=== PATIENT | female | born 1950 | race Caucasian/White ===

== ENCOUNTER → 2019-07-22 | Outpatient (CLI) | payer OTHER ==
[~2019-07-22] MED LIST: ACET500T68 PO; ALBU2.5V8 IH; FLUT10.6 IH; LORA10CA PO; LOSA100T14 PO; OMEP20CA10 PO; SIMV40TA PO
== END | disposition home or self-care (01) ==
LOC: SURGPAT 13:08
PROVIDERS: ATTEND Orthopaedic Surgery
DX: Z01.818 Encounter for other preprocedural examination (principal); M17.0 Bilateral primary osteoarthritis of knee; M25.561 Pain in right knee
CPT/HCPCS: 36415; 87641

== ENCOUNTER → 2019-07-26 | Outpatient (CLI) | payer OTHER ==
[~2019-07-26] MED LIST changes: -ALBU2.5V8 IH; +HYDR-3164 PO; +PROVENTIL HFA6.7 GM IH; +REGADENOSON 0.4 MG/5 ML DISP.SYRIN. IV ONE; +WARF-31 PO
--- NOTE | 2019-07-26 11:10 | RAD ---
MR#: [id number] Date of Study: 07/26/2019 Ordering Physician: CIRILO TREADWELL, Referring Physician: FELICIA ALFRED Tech: ALEX Flor, ARRJazz (R) (N) APPROVED REPORT Test Type: Pharmacological Stress Nurse/Tech: Toni Fenton RN Test Indications: Pre-op clearance Cardiac History: HTN, asthma, Hyperlipidemia Medications: See Electronic Medical Record Medical History: See Electronic Medical Record Resting ECG: SR Resting Heart Rate: 60 bpm Resting Blood Pressure: 123/67mmHg Pretest Chest Pain: None Nurse/Tech Notes Lungs CTA, S1S2 Consent: The procedure was explained to the patient in lay terms. Informed consent was witnessed. Kulwinder eout was entered into [employer]. History and Stress Test performed by RT Melissa MartínezR) (N) Pharm. Details Pharmacologic stress testing was performed using 0.4mg per 5ml of regadenoson given intravenously ove r 7-10 seconds. Stress Symptoms No chest pain or symptoms. POST EXERCISE Reason for Termination: Infusion complete Max HR: 109 bpm Max Blood Pressure: 143/69mmHg Blood Pressure response to exercise: Normal blood pressure response during stress. Heart Rate response to exercise: normal response Chest Pain: No. Arrhythmia: No. ST Change: No. INTERPRETATION Stress EKG Conclusion: Baseline EKG showed sinus rhythm. No ischemic changes at peak stress. No arr hythmias. Imaging Protocol IMAGE PROTOCOL: Rest Tc-99m/stress Tc-99m 1 day Rest: Stress: Viability: Radiopharm.Tc99m DchcvosnoNb46z Sestamibi Dose10.6mCi 30.2mCi Img Date 07/26/2019 07/26/2019 Inj-Img Cqux70pyq. 60min. Rest Admin Site:IV - Right AntecubitalAdministrator: ALEX Flor, ARRJazz (R)(N) Stress Admin Site: IV - Right AntecubitalAdministrator: RT Chase Mratínez)(N) STRESS DATA End Diast. Vol.62.5mlLVEDV index BSA34.0ml End Syst. Vol.15.5mlLVESV index BSA8.5ml Myocardial Dhst180.0gEject. Yptlhnqw53.5% Stress Scores Regional WT0.00Summed WT0.50 Regional WM0.00Summed WM1.00 Study quality was good. Left Ventricular size was Normal at Rest and Stress. Lung uptake was . Left Ventricular ejection fraction is 77%. The rest and stress images show normal perfusion, normal contraction and thickening. LV Perf. Quant 17 Seg. SSS0.00 17 Seg. SRS5.00 17 Seg. SDS0.00 Stress Defect Extent (% LAD)0.00Rest Defect Extent (% LAD)0.00Rev. Defect Extent (% LAD)0.00 Stress Defect Extent (% LCX) 0.00Rest Defect Extent (% LCX)11.30Rev. Defect Extent (% LCX)0.00 Stress Defect Extent (% RCA)0.00Rest Defect Extent (% RCA)0.00Rev. Defect Extent (% RCA)0.00 Stress Defect Extent (% MISAEL)0.00Rest Defect Extent (% MISAEL)2.00Rev. Defect Extent (% MISAEL)0.00 Conclusion 1. Regadenoson cardioisotope stress test did not show any evidence of ischemia or infarct. 2. Normal left ventricular systolic function with ejection fraction calculated at 77%. 3. Low risk for cardiac events. Signed by : Cirilo Treadwell, Electronically Approved : 07/26/2019 11:10:10
== END | disposition home or self-care (01) ==
LOC: NM 08:18
PROVIDERS: ATTEND Internal Medicine Cardiovascular Disease
DX: Z01.810 Encounter for preprocedural cardiovascular examination (principal); I10 Essential (primary) hypertension; J45.909 Unspecified asthma, uncomplicated; E78.5 Hyperlipidemia, unspecified; F17.200 Nicotine dependence, unspecified, uncomplicated; Z88.5 Allergy status to narcotic agent
CPT/HCPCS: 78452; 93017; A9500; J2785

== ENCOUNTER 2019-08-06 07:01 | Inpatient (IN) | payer OTHER ==
[~2019-08-06] VITALS: Ht 165.1 cm; Wt 78.0 kg
[2019-08-06] VITALS (10 sets, daily range): BP systolic 107–162; BP diastolic 58–80
[~2019-08-06 07:01] MED LIST changes: +ACETAMINOPHEN 500 MG TABLET PO PRN; -HYDR-3164 PO; +IV RINGERS,LACTATED 1000ML 1,000 ML IV SCH; +KETOROLAC 30MG VIAL 30 MG, ROPIVacaine 0.5% PF 60 ML, EPINEPHrine 0.5 MG in IV NORMAL S... INJ ONE; +MELOXICAM 7.5 MG TABLET PO PRN; +ONDANSETRON PF 4 MG/2 ML VIAL. IV PRN; +PROCHLORPERAZINE 10 MG/2 ML VIAL. IV PRN; -REGADENOSON 0.4 MG/5 ML DISP.SYRIN. IV ONE; +TRANEXAMIC ACID 1,000 MG in IV NS 50ML -- 1ST BAG INJ ONE; -WARF-31 PO; +fentaNYL PF VIAL 100 MCG/2 ML VIAL IV PRN
[2019-08-06] MEDS ORDERED: diphenhydrAMINE 50 MG/ML VIAL IV PRN (07:30)
[2019-08-06] MEDS ORDERED: CALCIUM CARBONATE 500 MG TAB.CHEW PO PRN (07:30)
[2019-08-06] MEDS ORDERED: fentaNYL PF VIAL 100 MCG/2 ML VIAL IV PRN (07:30)
[2019-08-06] MEDS ORDERED: 0.9 % SODIUM CHLORIDE 10 ML DISP.SYRIN. IV PRN (07:30)
[2019-08-06] MEDS ORDERED: DEXTROSE 50% 25 GM / 50ML DISP.SYRIN. IV PRN (07:30)
[2019-08-06] MEDS ORDERED: MORPHINE SULFATE 2 MG/ML VIAL. IV PRN (07:30)
[2019-08-06] MEDS ORDERED: PROCHLORPERAZINE 5 MG TABLET. PO PRN (07:30)
[2019-08-06] MEDS ORDERED: fentaNYL PF VIAL 100 MCG/2 ML VIAL ONE ×3 (07:36→11:26)
[2019-08-06] MEDS ORDERED: LIDOCAINE 2% PF 5 ML VIAL. ONE (07:36)
[2019-08-06] MEDS ORDERED: ROCURONIUM 50 MG/5 ML VIAL. ONE (07:36)
[2019-08-06] MEDS ORDERED: PROPOFOL 20 ML IV ONE (07:36)
[2019-08-06] MEDS ORDERED: DEXAMETHASONE SOD PHOS 4 MG/ML VIAL ONE (07:36)
[2019-08-06] MEDS ORDERED: ONDANSETRON PF 4 MG/2 ML VIAL. ONE (07:36)
[2019-08-06] MEDS ORDERED: FAMOTIDINE 20 MG/2 ML VIAL ONE (07:36)
[2019-08-06] MEDS ORDERED: MIDAZOLAM HCL/PF 2 MG/2 ML VIAL. ONE (07:37)
[2019-08-06] MEDS ORDERED: KETAMINE HCL IN NACL, ISO-OSM 50 MG/5 ML SYRINGE ONE (07:37)
[2019-08-06] MEDS ORDERED: TRANEXAMIC ACID 1,000 MG in IV NS 50ML -- 2ND BAG INJ ONE (08:00)
--- NOTE | 2019-08-06 08:03 | HP ---
ADMIT DATE: 08/06/2019 CHIEF COMPLAINT: DJD of right knee. HISTORY OF PRESENT ILLNESS: The patient has undergone extended nonoperative treatment of right knee pain, undergone multiple series of injections and indicates that they have not been helpful, especially recently. She is having severe pain, accompanied sometimes by giving way sensation and is very limited by her pain and activities of daily living and desired activities, more pain with startup. PAST MEDICAL HISTORY: Tobacco use, esophagitis, asthma, hypertension, hyperlipidemia. PAST SURGICAL HISTORY: Right hip surgery, cataract removal, carpal tunnel release, hysterectomy and previous bilateral knee arthroscopies. FAMILY HISTORY: Colon cancer in her mother and generally in her family diabetes, stroke, asthma, pneumonia, heart disease, cancer, hiatal hernia and ulcers. SOCIAL HISTORY: She is a current every day smoker. Denies alcohol or drug use. MEDICATIONS: List including losartan, Zocor, omeprazole, Proventil, Flovent, Claritin, turmeric, Tylenol, calcium, vitamin D. ALLERGIES: CODEINE, WHICH IS A SENSITIVITY. REVIEW OF SYSTEMS: Denies any chest pain, shortness of breath, fever, chills, or other constitutional symptoms. PHYSICAL EXAMINATION: HEENT: Atraumatic, normocephalic. HEART: Regular rate and rhythm. LUNGS: Clear to auscultation bilaterally. ABDOMEN: Benign. EXTREMITIES: Examination of the right knee; she is stable, stable ligamentous examination, has a valgus deformity, varus deformity shows osteoarthritis with loss of medial joint space. Examination of the left knee is significant for patellofemoral crepitus, normal alignment and stability of bilateral hips and ankles. ASSESSMENT: Primarily right knee pain and primary osteoarthritis both knees. TREATMENT PLAN: Her right knee is far worse than the left. She is very limited in her activities of daily living and has been unresponsive to nonoperative treatment measures including injection, activity modification, medications and others. She wishes to proceed with surgical evaluation and treatment and we did cover the possibility of complications including infection, continued pain, premature wear or loosening, medical or other anesthetic complications among others. She agrees to proceed with surgical evaluation and treatment, which will occur today with [facility] admission to follow. HELEN CHAPMAN MD DR: JONNA/asim JOB#: [id number] / [id number]
[2019-08-06 08:15] LABS: PROTHROMBIN TIME PATIENT 12.5 SEC (11.7-14.0)
[2019-08-06] MEDS ORDERED: PHENYLEPHRINE in 0.9% NACL PF 1 MG/10 ML SYRINGE. IV ONE (08:50)
[2019-08-06] MEDS ORDERED: NEOSTIGMINE METHYLSULFATE 5 MG/5 ML SYRINGE. ONE (10:14)
[2019-08-06] MEDS ORDERED: GLYCOPYRROLATE 1 MG/5 ML VIAL. ONE (10:14)
[2019-08-06] MEDS ORDERED: SEVOFLURANE > 120 MINUTES. IH ONE (10:22)
--- NOTE | 2019-08-06 10:30 | PDOC4 ---
Operative Note Operative Note Date of surgery: 08/06/2019 Preoperative diagnosis: Degenerative right knee Postoperative diagnosis: Same Operative procedure: Right total knee arthroplasty Surgeon: Alberta Assist: Arielle Anesthesia: Gen. Estimated blood loss: 15 mL Complications: None Specimens: Cartilage surfaces to pathology Operative indications: Please see my history and physical and previous clinic notes for detailed operative indications and note that we had covered risks benefits postoperative course including the possibility of infection nerve or blood vessel damage continued pain premature wear or loosening medical or other anesthetic competitions among others all her questions were answered she wishes to proceed with surgical evaluation and treatment which will include joint center admission to follow today Operative text: Patient was identified procedure verified patient placed in the supine position on the operating table. After adequate amounts of general anesthesia were administered the right lower extremity was prepped and draped in standard sterile fashion with a thigh tourniquet. After timeout was performed patient procedure identified and verified the right lower extremity was exsanguinated by Esmarch bandage tourniquet inflated to 300 mmHg a midline incision was made and medial parapatellar approach carried out patella was feng rted fat pad was excised the femur was drilled for the intramedullary cutting guide which was set on a standard cut is there was no flexion contracture the femur was measured at a size 4 and set in 3 of external rotation with respect to the epicondylar axis and the chamfer cuts were made. Tibial cuts were made using the extra medullary cutting guide and PCL was preserved ligament balance was noted to be excellent with a 10 mm spacer a size 3 tibia component was drilled and broached and a cruciate retaining femoral component placed with excellent stability. Resurfacing patellar component was carried out by reaming and trimming off excess lateral bone to avoid any impingement and patella tracking was noted to be excellent. Femoral lugs were drilled tibial was drilled and broached and trial components removed thorough irrigation carried out normal saline solution bleeding points controlled by electrocautery and the following components were cemented in place with polymethylmethacrylate cement: A size 3 journey nonporous tibial baseplate a size 4 right cruciate retaining journey 2 Oxinium femoral component with a temporary 10 mm spacer and a 32 mm resurfacing round patellar component excess cement was removed and following the cement drying again thorough irrigation carried out normal saline solution and a 10 mm spacer was locked into place Hemovac drain and pain catheter were placed pain catheter mixture injected throughout the joint capsule and retinaculum was closed with #2 Ethibond suture in an interrupted fashion and #1 strata fix PDS suture. Subcutaneous closure with buried Vicryl suture subcuticular 30 strata fix Monocryl. A ty drain was placed patient was returned recovery room in stable condition having tolerated procedure well and toes were noted be warm pink following deflation of the tourniquet. [facility] assist was present for the procedure assisted in the prepping draping retraction and skin closure HELEN CHAPMAN MD Aug 06, 2019 10:30
[2019-08-06] MEDS: fentaNYL PF VIAL 100 MCG/2 ML VIAL IV PRN ×3 (10:54→11:51)
[2019-08-06] MEDS ORDERED: MORPHINE SULFATE 2 MG/ML VIAL. ONE (11:20)
--- NOTE | 2019-08-06 11:20 | RAD ---
KNEE RIGHT 2V History: Postop right knee arthroplasty. Technique: 2 views right knee. Comparison: February 06, 2019. Findings: Interval right total knee arthroplasty. Expected postoperative finding subcutaneous and intra-articular gas. Surgical drain is noted. Cortical disruption along the right medial proximal tibia metaphysis. Impression: 1. Interval right total knee arthroplasty. 2. Cortical disruption along the right medial proximal tibia, may represent nondisplaced fracture. FOR INTERNAL CODING PURPOSES Critical result: Findings discussed with patient's nurse at 08/06/2019 11:16 AM. RESULT CODE: (C) Electronically signed by: Terrence Faulkner DO (08/06/2019 11:18 AM) [facility]
--- NOTE | 2019-08-06 11:55 | NUR ---
ARRIVED TO UNIT BY BED FROM PACU. ALERT AND ORIENTED X'S 4. C/O SPASMS RIGHT LEG. REPOSITION ON PILLOW WITH ICE PACK. RIGHT KNEE DRESSING IS D/I WITH ALEJANDRA, IAC AND HEMOVAC DRAIN. WIGGLES TOES EASILY, WARM TO TOUCH AND PEDAL PULSES + BILATERALLY. TRAVIS AND SCD ON LEFT LEG AND RIAN ON RIGHT FOOT. IV'S INTACT AND INFUSING. O2 AT 2L PER N/C. ORIENTED TO ROOM AND CONTROLS. SIDE RAILS UP X'S 2 WITH CALL LIGHT IN REACH. CONT. MONITOR.
[2019-08-06] MEDS: ONDANSETRON ODT 4 MG TAB.RAPDIS. PO SCH ×2 (12:00→17:22)
[2019-08-06] MEDS: ONDANSETRON PF 4 MG/2 ML VIAL. IV SCH ×2 (12:00→17:21)
--- NOTE | 2019-08-06 12:35 | NUR ---
AMBULATED TO BATHROOM WITH STEADY GAIT WITH ASSISTED OF 2. VOIDED 500ML CLEAR YELLOW URINE. RETURN BACK TO BED. SON AT BEDSIDE. LUNCH ORDERED. CONT. MONITOR.
[2019-08-06] MEDS: HYDROcodone/APAP 5/325MG 1 TAB TABLET PO PRN ×2 (13:10→19:53)
[2019-08-06] MEDS: ceFAZolin SODIUM IV Push 1 GM VIAL. IVP SCH ×2 (13:11→19:52)
[2019-08-06] MEDS: IV NORMAL SALINE 1000ML BAG 1,000 ML IV SCH (13:11)
[2019-08-06] MEDS ORDERED: WARFARIN 3 MG TABLET. PO ONE (16:00)
[2019-08-06] MEDS: FERROUS SULFATE 325 MG TABLET. PO SCH (16:23)
[2019-08-06] MEDS: KETOROLAC 30MG VIAL 30 MG, BUPIVACAINE MPF 0.25% 20 ML, EPINEPHrine 0.5 MG in TOTAL VOL... INT ART SCH (17:09)
[2019-08-06] MEDS ORDERED: BUDESONIDE 0.5 MG/2 ML NEBU. NEB SCH (20:00)
[2019-08-06] MEDS: ZOLPIDEM 5 MG TABLET. PO PRN ×2 (21:09→22:25)
[2019-08-06] MEDS: SIMVASTATIN 40 MG TABLET. PO SCH (21:09)
--- NOTE | 2019-08-06 21:29 | NUR ---
seen hemovac tubing out in bed catheter tip intact
[2019-08-07] MEDS: ceFAZolin SODIUM IV Push 1 GM VIAL. IVP SCH (01:59)
[2019-08-07 02:29] VITALS: BP 103/62
[2019-08-07] MEDS: HYDROcodone/APAP 5/325MG 1 TAB TABLET PO PRN ×2 (02:45→09:28)
[2019-08-07 04:39] LABS: HEMATOCRIT 35.5 % (36.0-47.0); HEMOGLOBIN 11.9 g/dL (12.0-15.5)
[2019-08-07 04:50] LABS: PROTHROMBIN TIME PATIENT 14.8 SEC (11.7-14.0)
[2019-08-07] MEDS: KETOROLAC 30MG VIAL 30 MG, BUPIVACAINE MPF 0.25% 20 ML, EPINEPHrine 0.5 MG in TOTAL VOL... INT ART SCH (05:36)
[2019-08-07] MEDS: traMADol 50 MG TABLET PO SCH ×4 (05:47→18:01)
[2019-08-07] MEDS: ONDANSETRON ODT 4 MG TAB.RAPDIS. PO SCH ×2 (06:00)
[2019-08-07] MEDS: ONDANSETRON PF 4 MG/2 ML VIAL. IV SCH ×2 (06:00)
[2019-08-07] MEDS ORDERED: MAGNESIUM HYDROXIDE 2,400 MG/30 ML ORAL.SUSP. PO PRN (06:00)
[2019-08-07] MEDS ORDERED: GABAPENTIN 100 MG CAPSULE. PO SCH (06:00)
[2019-08-07 06:16] VITALS: BP 107/66
[2019-08-07] MEDS: IV NORMAL SALINE 1000ML BAG 1,000 ML IV SCH ×2 (07:21→20:27)
[2019-08-07 07:40] VITALS: BP 104/52
[2019-08-07] MEDS: SENNOSIDES/DOCUSATE 8.6/50MG TABLET. PO SCH (07:40)
[2019-08-07] MEDS: PANTOPRAZOLE 40 MG TABLET.DR. PO SCH (07:40)
[2019-08-07] MEDS: MULTIVITAMIN with MINERAL TABLET. PO SCH (07:40)
[2019-08-07] MEDS: MELOXICAM 7.5 MG TABLET PO SCH (07:41)
[2019-08-07 07:45] VITALS: BP 104/52
[2019-08-07] MEDS: FERROUS SULFATE 325 MG TABLET. PO SCH ×2 (07:45→16:47)
[2019-08-07] MEDS ORDERED: ACETAMINOPHEN 500 MG TABLET PO PRN (09:00)
[2019-08-07] MEDS ORDERED: ACETAMINOPHEN 500 MG TABLET PO SCH (09:00)
--- NOTE | 2019-08-07 10:47 | NUR ---
Pharmacy Warfarin Dosing Note S:Pharmacy consulted to assist with anticoagulation therapy started 08/06/19 with target INR: 1.6 - 2.5 O:FELIPE MERINO is a 68 year old F s/p Right TKA LABS: Last INR: 1.2 Last HGB: 11.9 Last HCT: 35.5 Last PLT: - Last dose of 6 mg given on 08/06/19 at 1623 Previous Regimen: NA Vitamin K given: N Drug Interaction Changes: Same Interacting Drug Ongoing Drug Interactions: Meloxicam A:INR of 1.2 is below desired range. Target range for this patient is: 1.6 - 2.5 P: Warfarin dose: 5 mg Today at 1600 Bridge Therapy: None Next INR due 08/08/19 Pharmacy anticoagulation service will continue to follow. SHELBY GALLAGHER [facility], 08/07/19 1046
[2019-08-07] MEDS ORDERED: ONDANSETRON ODT 4 MG TAB.RAPDIS. PO PRN (12:00)
[2019-08-07] MEDS ORDERED: ONDANSETRON PF 4 MG/2 ML VIAL. IV PRN (12:00)
[2019-08-07] MEDS: LOSARTAN POTASSIUM 50 MG TABLET. PO SCH (12:15)
--- NOTE | 2019-08-07 14:58 | PDOC ---
PROGRESS NOTES Subjective Subjective Problems overnight: Very pleased with her function so far says the right knee is less painful than before surgery left knee doesn't seem to be having as much compensatory pain in either Objective Vital Signs Vital Signs Date Time Temp Pulse Resp B/P (MAP) Pulse Ox O2 Delivery O2 Flow Rate FiO2 08/07/19 12:15 76 114/70 08/07/19 12:10 Room Air 08/07/19 07:00 2.0 08/07/19 06:16 97.9 20 97 97.9 Physical Exam Excellent range of motion patellofemoral tracking ligament balance distal neurovascular status intact Labs Laboratory Tests Test 08/06/19 07:49 08/07/19 04:20 Prothrombin Time 12.5 SEC (11.7-14.0) 14.8 SEC (11.7-14.0) Prothromb Time International Ratio 1.0 (0.8-1.1) 1.2 (0.8-1.1) Activated Partial Thromboplast Time 29 SEC (24-38) Hemoglobin 11.9 g/dL (12.0-15.5) Hematocrit 35.5 % (36.0-47.0) Mean Corpuscular Hemoglobin Concent 34 g/dL (31-37) Laboratory Tests Test 08/07/19 04:20 Hemoglobin 11.9 g/dL (12.0-15.5) Hematocrit 35.5 % (36.0-47.0) Mean Corpuscular Hemoglobin Concent 34 g/dL (31-37) Prothrombin Time 14.8 SEC (11.7-14.0) Prothromb Time International Ratio 1.2 (0.8-1.1) Imaging Postoperative x-rays on radiology report were suspicious for a little bit of medial cortical disruption however I did not notice any type of disruption during the surgery with implant placement she is having no pain in the specific area and I think that is a likely pre-existing abnormality Assessment Assessment POD# 1 right total knee arthroplasty Plan Plan of Care Continue mobilize weightbearing as tolerated Coumadin anticoagulation Plan home on discharge with either home health or outpatient physical therapy HELEN CHAPMAN MD Aug 07, 2019 14:58
[2019-08-07] MEDS ORDERED: WARFARIN 5 MG TABLET. PO ONE (16:00)
[2019-08-07] MEDS ORDERED: BISACODYL 10 MG SUPP.RECT. PR PRN (16:00)
[2019-08-07 18:02] VITALS: BP 137/71
[2019-08-07] MEDS: SIMVASTATIN 40 MG TABLET. PO SCH (20:54)
[2019-08-07] MEDS ORDERED: diphenhydrAMINE HCL 25 MG CAPSULE PO ONE (21:15)
--- NOTE | 2019-08-07 22:03 | NUR ---
Ambulated 4x around station in halls w/o difficulty and SBA. Surgical dressing D/I, ALEJANDRA in place.
[2019-08-08] MEDS: HYDROcodone/APAP 5/325MG 1 TAB TABLET PO PRN ×3 (04:27→16:35)
[2019-08-08 04:33] LABS: PROTHROMBIN TIME PATIENT 14.5 SEC (11.7-14.0)
[2019-08-08] MEDS: PANTOPRAZOLE 40 MG TABLET.DR. PO SCH (06:06)
[2019-08-08 06:27] VITALS: BP 141/83
[2019-08-08] MEDS: MULTIVITAMIN with MINERAL TABLET. PO SCH (08:02)
[2019-08-08] MEDS: FERROUS SULFATE 325 MG TABLET. PO SCH ×2 (08:03→15:39)
[2019-08-08] MEDS: MELOXICAM 7.5 MG TABLET PO SCH (08:03)
[2019-08-08] MEDS: SENNOSIDES/DOCUSATE 8.6/50MG TABLET. PO SCH (08:03)
[2019-08-08] MEDS: LOSARTAN POTASSIUM 50 MG TABLET. PO SCH (08:07)
[2019-08-08 09:05] LABS: HEMATOCRIT 35.6 % (36.0-47.0)
--- NOTE | 2019-08-08 12:21 | NUR ---
reviewed orally discharge instructions regarding restrictions of daily living, driving and bathing. verbalized understanding.
[2019-08-08] MEDS: traMADol 50 MG TABLET PO SCH ×2 (13:12)
--- NOTE | 2019-08-08 14:08 | NUR ---
Pharmacy Warfarin Dosing Note S: Pharmacy consulted to assist with anticoagulation therapy started 08/06/19 O: FELIPE MERINO is a 68 year old F with Right TKA LABS: Last INR: 1.2 Last HGB: 12 Last HCT: 35.6 Last PLT: - Last dose of 5 mg given on 08/07/19 at 1647 Vitamin K given: N Ongoing Drug Interactions: Meloxicam A:INR of 1.2 is below desired range. Target range for this patient is: 1.6 - 2.5 P: Warfarin dose: 5 mg Today at 1600 Bridge Therapy: None Next INR due tomorrow Pharmacy anticoagulation service will continue to follow. Hazel Madden Samara, 08/08/19 [id number]
[2019-08-08 15:37] VITALS: BP 144/69
[2019-08-08] MEDS ORDERED: HYDR-3164 PO (15:50)
[2019-08-08] MEDS ORDERED: WARF-31 PO (15:50)
--- NOTE | 2019-08-08 15:56 | SNU/HH DC ---
DISCHARGE WITH HOME HEALTH DISCHARGE INFORMATION: Final Diagnosis: Status post right total knee arthroplasty Condition on Discharge: Stable HOME HEALTH: Face to Face: I certify this patient is under my care and that I, or a nurse practitioner or physician's veterinary technician assistant working with me, had a face to face encounter that meets the physician face to face encounter requirements with this patient on [08/08/19]. Medical Complications: S/P Joint Replacement RN For Eval/Treatment: Yes Physical Therapy For: Evalulation/Treatment Pt Meets Homebound Status: Limited distance walking POST DISCHARGE ORDERS: Weight Bearing Status after Di: As tolerated DIET AFTER DISCHARGE: Regular Wound/Incision Care: Ice to area for comfort Other wound/incision instructi: remove battery pack on monday 08/13 unscrew close to dressing tape downwa CHECKS AFTER DISCHARGE: Comment: PT/INR to be drawn every Monday for the month of FOLLOW-UP: Follow Up With: call [phone] for a 2 week post op appt with Dr. Pinzon Warfarin Follow UP: [facility] to manage coumadin ???call [phone] fax [phone] TREATMENT/EQUIPMENT ORDERS: Adaptive Equipment Issued: Front wheeled walker CERTIFICATION STATEMENT: Certification Statement: Certification Statement: Based on the above finding, I certify that this patient is confined to the home and needs intermittent fpc care, physical therapy and/or speech therapy, or continues to need occupational therapy.~ This patient is under my care, and I have initiated the establishment of the plan of care.~ This patient will be followed by myself or a community physician who will periodically review the plan of care. Home Meds Reported Medications Acetaminophen (ACETAMINOPHEN) 500 Mg Tablet, 1000 MG PO BID for PAIN CONTROL, TAB 07/22/19 Loratadine (CLARITIN) 10 Mg Capsule, 10 MG PO DAILYBFRLUN for control allergies, CAP 07/22/19 Fluticasone Propionate (FLOVENT 44MCG HFA) 10.6 Gm Aer.w.adap, 2 PUFF IH PRN BID PRN for WHEEZING, INHALER 07/22/19 Albuterol Sulfate (PROVENTIL HFA INHALER) 6.7 Gm Hfa.aer.ad, 2 PUFF IH PRN Q4HRS PRN for FOR ASTHMA, INHALER 0 Refills 07/22/19 Omeprazole (OMEPRAZOLE) 20 Mg Capsule.dr, 20 MG PO DAILY for treat reflux, CAP 07/22/19 Simvastatin (ZOCOR) 40 Mg Tablet, 40 MG PO HS for FOR CHOLESTEROL, #30 TAB 0 Refills 07/22/19 Losartan Potassium (LOSARTAN POTASSIUM) 100 Mg Tablet, 100 MG PO DAILY for HYPERTENSION, TAB 07/22/19 HELEN PINZON MD Aug 08, 2019 15:56
[2019-08-08] MEDS ORDERED: WARFARIN 5 MG TABLET. PO ONE (16:00)
--- NOTE | 2019-08-08 17:00 | NUR ---
reviewed written discharge instructions with Jazmin. ride is here. reviewed written discharge instructions especially medications. does not want to wait for dinner. Coumadin given and instructed to start tomorrow evening. --again stated her ride is here--forgot to sign but agreed verbally that she understood instructions. dismissed by wheelchair. script given
--- NOTE | 2019-08-08 18:06 | PATHOLOGY ---
[facility] Accession Number: [id number] . 01 Material submitted: . knee - RIGHT KNEE BONE AND TISSUE. Modifiers: right . 01 Clinical history: . None provided . 02 Diagnosis: Segments of bone and soft tissue, right total knee arthroplasty: - Advanced degenerative arthritis. (JPM:[facility] 08/08/2019) QTP 08/08/2019 1529 Local . 02 Electronically signed: . Oliverio Tong MD, Pathologist NPI- [id number] . 01 Gross description: . The specimen is received in formalin, labeled "Jazmin Oliveira, right knee bone and tissue" and consists of multiple segments of bone including the tibial plateau with attached yellow lobulated tissue measuring 16.0 x 11.6 x 2.0 cm in aggregate. The meniscus is present. Eburnation is present along with periphery osteophytic lipping. Bradder sections are submitted in A1-A2 with A2 following decalcification. (SDY; 08/06/2019) SYU/SYU 08/08/2019 1529 Local . 02 Pathologist provided ICD-10: M17.11 . 02 CPT . 231304, [id number] Specimen Comment: A courtesy copy of this report has been sent to [phone], [phone] Specimen Comment: [id number] Specimen Comment: Report sent to / DR TAVARES Performed at: 01 [facility] [address], [place] [id number] MD Jasmeet Khan MD Phone: [phone] Performed at: 02 [facility] [address], [place] [id number] MD Oliverio Tong MD Phone: [phone]
--- NOTE | 2019-08-09 18:31 | DS ---
DATE OF DISCHARGE: 08/08/2019 CHIEF COMPLAINT: Right knee pain, DJD. PROCEDURE: Include a right total knee arthroplasty. DISPOSITION: Home with home health. MEDICATIONS: Include Coumadin as directed by anticoagulation clinic, Igor 5/325 one p.o. q. 4 hours p.r.n., dispense #60. Resume preoperative medications. ACTIVITY: Weightbearing as tolerated, standard total knee precautions, maintain ALEJANDRA drain. DISCHARGE INSTRUCTIONS: Report any redness, drainage, fever, chills, uncontrolled pain or other problems. Follow up with Dr. Pinzon 2 weeks. BRIEF DESCRIPTION OF HOSPITAL COURSE: The patient underwent an uncomplicated right total knee arthroplasty, was medically stable throughout and did go through physical therapy, doing extremely well. She actually said she had less pain than before and the other knee hurting her less as compensatory measure. She was able to perform her activities of daily living and transfers well with physical therapy and was discharged in stable condition. HELEN PINZON MD DR: JONNA/asim JOB#: [id number] / [id number]
== END 2019-08-08 16:50 | disposition home health service (06) | DRG 470 ==
LOC: OPSVCIP 07:01 → 4 SOUTHEST 11:57
PROVIDERS: ADMIT Orthopaedic Surgery; ATTEND Orthopaedic Surgery
PROC: 0SRC0J9 Replacement of Right Knee Joint with Synthetic Substitute, Cemented, Open Approach (ICD-10-PCS; principal; 2019-08-06 08:30)
DX: M17.11 Unilateral primary osteoarthritis, right knee (principal); F17.200 Nicotine dependence, unspecified, uncomplicated; J45.909 Unspecified asthma, uncomplicated; I10 Essential (primary) hypertension; E78.5 Hyperlipidemia, unspecified; Z83.3 Family history of diabetes mellitus; Z82.5 Family history of asthma and other chronic lower respiratory diseases; Z82.3 Family history of stroke; Z80.0 Family history of malignant neoplasm of digestive organs; Z90.710 Acquired absence of both cervix and uterus
CPT/HCPCS: 36415; 73560; 85014; 85018; 85610; 85730; 86850; 86900; 86901; 88304; 88311; A7015; C1713; J0171; J0690; J0696; J1100; J1885; J2001; J2250; J2270; J2370; J2405; J2704; J2710; J2795; J3010; J3490; J7030; J7120; Q0163; 97116; 97150; 97530; 97535; C1769; G0378

== ENCOUNTER → 2019-09-16 | Outpatient (CLI) | payer OTHER ==
[~2019-09-16] MED LIST changes: -ACETAMINOPHEN 500 MG TABLET PO PRN; +HYDR-3164 PO; -IV RINGERS,LACTATED 1000ML 1,000 ML IV SCH; -KETOROLAC 30MG VIAL 30 MG, ROPIVacaine 0.5% PF 60 ML, EPINEPHrine 0.5 MG in IV NORMAL S... INJ ONE; -MELOXICAM 7.5 MG TABLET PO PRN; +OMEP-229 PO; -OMEP20CA10 PO; -ONDANSETRON PF 4 MG/2 ML VIAL. IV PRN; -PROCHLORPERAZINE 10 MG/2 ML VIAL. IV PRN; -TRANEXAMIC ACID 1,000 MG in IV NS 50ML -- 1ST BAG INJ ONE; +WARF-31 PO; -fentaNYL PF VIAL 100 MCG/2 ML VIAL IV PRN
--- NOTE | 2019-09-16 10:22 | CARD ---
MR#: [id number] Date of Study: 09/16/2019 Ordering Physician: CIRILO TREADWELL, Referring Physician: CIRILO TREADWELL Tech: Sierra Us RDCS APPROVED REPORT EXAM: Two-dimensional and M-mode echocardiogram with Doppler and color Doppler. Other Information Quality : Good INDICATION Pre-Op 2D DIMENSIONS RVDd2.5 (2.9-3.5cm)Left Atrium(2D)3.4 (1.6-4.0cm) IVSd0.9 (0.7-1.1cm)Aortic Root(2D)3.0 (2.0-3.7cm) LVDd4.9 (3.9-5.9cm)LVOT Diameter1.9 (1.8-2.4cm) PWd0.9 (0.7-1.1cm)LVDs2.7 (2.5-4.0cm) FS (%) 30.0 %SV87.4 ml LVEF(%)60.0 (>50%) Aortic Valve AoV Peak Jamil.130.6cm/sAoV VTI25.2cm AO Peak GR.6.8mmHgLVOT Peak Jamil.111.8cm/s AO Mean GR.4mmHgAVA (VMAX)2.46cm2 VY (VTI)2.60cm2 Mitral Valve MV E Umwzrack18.0cm/sMV DECEL BMWV843fo MV A Nvgptwuf33.8cm/sE/A Ratio0.9 Tricuspid Valve TR P. Ypkoqdxb310bt/sRAP SHXKDDIA1zcTq TR Peak Gr.41gaSoGQHB02gjOd Pulmonary Vein S1 Tcqyqhvz07.2cm/sD2 Kwortelj24.0cm/s LEFT VENTRICLE The left ventricle is normal size. There is mild to moderate concentric left ventricular hypertrophy. The left ventricular systolic function is normal and the ejection fraction is within normal range. T he Ejection Fraction is 55-60%. There is normal LV segmental wall motion. Transmitral Doppler flow pa ttern is Grade I-abnormal relaxation pattern. RIGHT VENTRICLE The right ventricle is normal size. The right ventricular systolic function is normal. ATRIA The left atrium size is normal. The right atrium size is normal. The interatrial septum is intact wit h no evidence for an atrial septal defect or patent foramen ovale as noted on 2-D or Doppler imaging. AORTIC VALVE The aortic valve is mildly thickened/calcified but opens well. Doppler and Color Flow revealed no sig nificant aortic regurgitation. There is no significant aortic valvular stenosis. MITRAL VALVE The mitral valve is calcified but opens well. Mitral annular calcification is mild. There is no evide nce of mitral valve prolapse. There is no mitral valve stenosis. Doppler and Color-flow revealed trac e to mild mitral regurgitation. TRICUSPID VALVE The tricuspid valve is normal in structure and function. Doppler and Color Flow revealed trace to mil d tricuspid regurgitation. The PA pressure was estimated at 25 mmHg. There is no tricuspid valve sten osis. PULMONIC VALVE The pulmonic valve is not well visualized. Doppler and Color Flow revealed trace to mild pulmonic nichole vular regurgitation. There is no pulmonic valvular stenosis. GREAT VESSELS The aortic root is normal in size. The ascending aorta is normal in size. The IVC is normal in size a nd collapses >50% with inspiration. PERICARDIAL EFFUSION There is no evidence of significant pericardial effusion. Critical Notification Critical Value: No <Conclusion> The left ventricular systolic function is normal and the ejection fraction is within normal range. Th e Ejection Fraction is 55-60%. There is normal LV segmental wall motion. Signed by : Walter Regan, Electronically Approved : 09/16/2019 10:21:46
== END | disposition home or self-care (01) ==
LOC: ECHO 07:24
PROVIDERS: ATTEND Internal Medicine Cardiovascular Disease
DX: Z01.818 Encounter for other preprocedural examination (principal); I08.8 Other rheumatic multiple valve diseases
CPT/HCPCS: 93306

== ENCOUNTER → 2020-09-28 | Outpatient (CLI) | payer MEDICARE ==
[~2020-09-28] MED LIST changes: -OMEP-229 PO; +OMEP20CA16 PO
--- NOTE | 2020-09-28 14:28 | CARD ---
MR#: [id number] Date of Study: 09/28/2020 Ordering Physician: CIRILO TREADWELL, Referring Physician: CIRILO TREADWELL Tech: Mary Bishop [facility] APPROVED REPORT EXAM: Two-dimensional and M-mode echocardiogram with Doppler and color Doppler. Other Information Quality : Good Rhythm : NSR INDICATION Hypertension/HCVD RISK FACTORS Hypertension Hyperlipidemia 2D DIMENSIONS RVDd2.8 (2.9-3.5cm)Left Atrium(2D)3.6 (1.6-4.0cm) IVSd1.1 (0.7-1.1cm)Aortic Root(2D)3.0 (2.0-3.7cm) LVDd4.0 (3.9-5.9cm)LVOT Diameter2.1 (1.8-2.4cm) PWd1.0 (0.7-1.1cm)LVDs2.9 (2.5-4.0cm) FS (%) 27.7 %SV37.3 ml LVEF(%)54.3 (>50%) Aortic Valve AoV Peak Jamil.109.9cm/sAoV VTI27.9cm AO Peak GR.4.8mmHgLVOT Peak Jamil.110.9cm/s AO Mean GR.3mmHgAVA (VMAX)3.59cm2 Mitral Valve MV E Ffcqqtar253.9cm/sMV DECEL OABK438bs MV A Lbecqbyh73.7cm/sE/A Ratio1.0 Pulmonary Valve PV Peak Yzhvfhig78.4cm/s Tricuspid Valve TR P. Jewwdpwq692iq/sTR Peak Gr.22mmHg Pulmonary Vein S1 Ahxwxquu94.2cm/sD2 Nyuxxfcc43.7cm/s PVa [id number] LEFT VENTRICLE The left ventricle is normal size. There is normal left ventricular wall thickness. The left ventricu lar systolic function is normal and the ejection fraction is within normal range. Estimated ejection fraction 60%. There is normal LV segmental wall motion. Tissue Doppler imaging reveals mild left vent ricular diastolic dysfunction. RIGHT VENTRICLE The right ventricle is normal size. There is normal right ventricular wall thickness. The right ventr icular systolic function is normal. ATRIA The left atrium size is normal. The right atrium size is normal. The interatrial septum is intact wit h no evidence for an atrial septal defect or patent foramen ovale as noted on 2-D or Doppler imaging. AORTIC VALVE The aortic valve is normal in structure and function. Doppler and Color Flow revealed no significant aortic regurgitation. There is no significant aortic valvular stenosis. MITRAL VALVE The mitral valve is normal in structure and function. There is no mitral valve stenosis. Doppler and Color-flow revealed mild mitral regurgitation. TRICUSPID VALVE The tricuspid valve is normal in structure and function. Doppler and Color Flow revealed mild tricusp id regurgitation. Estimated PAP 25 mmHg. There is no tricuspid valve stenosis. PULMONIC VALVE Doppler and Color Flow revealed trace pulmonic valvular regurgitation. There is no pulmonic valvular stenosis. GREAT VESSELS The aortic root is normal in size. The ascending aorta is normal in size. The IVC is normal in size a nd collapses >50% with inspiration. PERICARDIAL EFFUSION There is no evidence of significant pericardial effusion. Critical Notification Critical Value: No <Conclusion> The left ventricular systolic function is normal and the ejection fraction is within normal range. E stimated ejection fraction 60%. There is normal LV segmental wall motion. Doppler and Color-flow revealed mild mitral regurgitation. Signed by : Walter Regan, Electronically Approved : 09/28/2020 14:28:16
== END ==
LOC: ECHO 08:42
PROVIDERS: ATTEND Internal Medicine Cardiovascular Disease
DX: I08.1 Rheumatic disorders of both mitral and tricuspid valves (principal); I10 Essential (primary) hypertension
CPT/HCPCS: 93306

== ENCOUNTER → 2021-04-26 | Outpatient (CLI) | payer MEDICARE ==
--- NOTE | 2021-04-26 14:46 | KCIC ---
MRI of the cervical spine without contrast 04/26/2021 CLINICAL HISTORY: Neck pain which radiates down the right shoulder. TECHNIQUE: Unenhanced T1-weighted, T2-weighted and inversion recovery sagittal and gradient echo and T2-weighted axial images of the cervical spine were obtained. FINDINGS: Minimal lateral curvature of the cervical spine is seen convex to the right. There is strai ghtening of the normal cervical lordosis. Degenerative signal changes are seen involving all of the d isks of the cervical spine. Degenerative signal changes are seen within the marrow surrounding these discs. No area of abnormal signal intensity is seen involving the cervical spinal cord. At the C2-3 disc space there is a mild generalized disc bulge. Degenerative changes are seen involvin g the uncovertebral and facet joints, right greater than left. These findings when combined do not re sult in significant central spinal canal stenosis. Mild right neural foraminal stenosis is seen. The left neural foramen is patent. At the C3-4 disc space is a mild to moderate generalized disc bulge. Degenerative changes are seen in volving the uncovertebral and facet joints.These findings when combined do not result in significant central spinal canal stenosis. Mild to moderate neural foraminal stenosis is seen. At the C4-5 disc space there is a mild generalized disc bulge. Degenerative changes are seen involvin g the uncovertebral and facet joints, right greater than left. These findings do not result in signif icant central spinal canal stenosis. Mild right neural foraminal stenosis is seen. The left neural fo ramen is patent. At the C5-6 disc space there is a moderate generalized disc bulge. Degenerative changes are seen invo lving the uncovertebral and facet joints bilaterally. These findings efface the anterior and posterio r CSF resulting in moderate central spinal canal stenosis with mild cord impingement. Moderate to sev ere bilateral neural foraminal stenosis is seen. At the C6-7 disc space there is a mild to moderate generalized disc bulge. Degenerative changes are s een involving the uncovertebral and facet joints, right greater than left. These findings when combin ed efface the anterior CSF resulting in mild central spinal canal stenosis without evidence of cord i mpingement. Moderate to severe right neural foraminal stenosis is seen. The left neural foramen is pa tent. At the C7-T1 disc space there is a minimal generalized disc bulge. Degenerative changes are seen invo lving the facet joints bilaterally. These findings do not result in significant central spinal canal or neural foraminal stenosis. IMPRESSION: Degenerative changes are seen throughout the cervical spine. These findings results in mo derate central spinal canal stenosis with mild cord impingement at C5-6 and mild central spinal canal stenosis without evidence of cord impingement at C6-7. Mild right neural foraminal stenosis is seen at C2-3 and C4-5. Mild to moderate bilateral neural foraminal stenosis is seen at C3-4. Moderate to s evere bilateral neural foraminal stenosis is seen at C5-6. Moderate to severe right neural foraminal stenosis is seen at C6-7. Electronically signed by: Oswald Arellano MD (04/26/2021 2:43 PM) [id number]
== END ==
LOC: KCIC MRI 10:39
PROVIDERS: ATTEND Family Medicine
DX: M47.23 Other spondylosis with radiculopathy, cervicothoracic region (principal); M40.292 Other kyphosis, cervical region; M48.02 Spinal stenosis, cervical region
CPT/HCPCS: 72141

== ENCOUNTER → 2021-05-31 | Outpatient (CLI) | payer MEDICARE ==
[~2021-05-31] MED LIST changes: +ACET325T9 PO; +FEXO1TAB31 PO
--- NOTE | 2021-05-31 15:49 | PDOC1 ---
INITIAL PAIN CONSULT DATE OF SERVICE: DOS: DATE: 05/31/21 TIME: 15:37 CHIEF COMPLAINT: Chief Complaint: Neck and bilateral upper extremity pain Low back and bilateral lower extremity pain HISTORY OF PRESENT ILLNESS: 70-year-old female presents with history of pain base of neck and shoulder pain radiating to the upper extremities somewhat worse on the right than the left and present bilaterally in the shoulders and upper extremities rating the posterior deltoids into the triceps also the biceps and forearm into the hands and fingers again worse on the right side patient reports occasional shooting pain on the right side which is sharp and aching but only intermittently patient reports is usually pretty rare for this to happen generally is not strict with that kind of intensity on the left side but it does travel in both the upper extremities patient also reports some low back pain with bilateral posterior gluteus lateral thigh and lower medial calf pain but is secondary to her neck and upper extremity pain. Patient did have an MRI scan of the cervical spine showing degenerative changes throughout with moderate central spinal canal stenosis with mild cord impingement C5-6 mild central spinal canal stenosis without evidence of cord impingement at C6-7 and mild right foraminal stenosis C2-3 and C4-5 with mild to moderate bilateral neuroforaminal stenosis at C3-4 patient is moderate to severe bilateral neuroforaminal stenosis at C5-6 and moderate to severe right neuroforaminal stenosis at C6-7. Patient rates her disability of 0-10 10 being worst is a 5 with family home responsibilities social activity occupation 9 with life support activities 3 with self-care and 4 with recreational activities patient is had physical therapy is recently April this year also doing stretching strength exercises has not chiropractic treatment on her low back as well none of these have decreased her pain significantly and nothing was long-lasting patient is also taking meloxicam which does not decrease the pain. She is tried pbku-xnb-qfktofm Advil as well as Tylenol with similar results and no significant decrease in pain. PAST MEDICAL HISTORY: PMH: Arthritis, hypertension, COPD, cataracts PREVIOUS SURGERIES: Past Surgical Hx: Cataract extraction, right hip replacement, right knee surgery, hysterectomy, bilateral carpal tunnel repairs CURRENT MEDICATIONS: Current Meds: Active Scripts Medications Dose Route/Sig Max Daily Dose Days Date Category Tylenol (Acetaminophen) 325 Mg Tablet 1-2 Tab PO QID 05/31/21 Reported Phoebe-D 24 Hour Tablet (Fexofenadine/Pseudoephedrine) 1 Each Tab.er.24h 1 Tab PO DAILY 30 05/31/21 Reported Mastic 5-325 Tablet (Acetaminophen/Hydrocodone Bitart) 1 Each Tablet 1 Tab PO PRN Q4HRS PRN 08/08/19 Rx Flovent 44MCG Hfa (Fluticasone Propionate) 10.6 Gm Aer.w.adap 2 Puff IH PRN BID PRN 07/22/19 Reported Proventil Hfa Inhaler (Albuterol Sulfate) 6.7 Gm Hfa.aer.ad 2 Puff IH PRN Q4HRS PRN 07/22/19 Reported Omeprazole 20 Mg Capsule.dr 20 Mg PO DAILY 07/22/19 Reported Zocor (Simvastatin) 40 Mg Tablet 40 Mg PO HS 07/22/19 Reported Losartan Potassium 100 Mg Tablet 100 Mg PO DAILY 07/22/19 Reported ALLERGIES; Allergies: Coded Allergies: codeine (Verified Adverse Reaction, Intermediate, Nausea and Vomiting, 07/22/19) FAMILY HISTORY: Family Hx: Colon cancer, brain tumor, diabetes SOCIAL HISTORY: Social Hx: Patient is under alcohol, does smoke cigarettes and smoked for about 50 years one half a pack a day on average. Patient lives at home does not have any children live in the home is single and is currently retired. REVIEW OF SYSTEMS: ROS: Positive for those items mentioned in history of present illness, all systems are reviewed, otherwise negative ,and are complete full and well-documented on patient's chart. PHYSICAL EXAM: VS: Blood pressure is 134/70 pulse 78 respirations 18 temperature is 98.1 F height 5 feet 5 inches weight is 172 pounds PE: PHYSICAL EXAMINATION: GENERAL: The patient is awake, alert, oriented, appropriate, very pleasant in demeanor HEENT: Shows normocephalic, atraumatic. Extraocular movements are intact and symmetrical. Oral cavity: Mucous membranes moist and pink. Dentition is intact. NECK: Shows anterior throat supple without palpable lymphadenopathy noted. Swallow reflex symmetrical. CHEST: Shows normal on inspection. Breath sounds are clear bilaterally, distant but no rales or rhonchi or wheezes. HEART: Shows S1, S2 clear. No murmurs auscultated. ABDOMEN: Soft, nontender, nondistended, obese. No palpable organomegaly is noted. BACK: Shows spine grossly in the midline. Normal-appearing cervical lordotic curvature. Cervical paraspinous muscles show symmetrical with inspection, on palpation some moderate tenderness diffusely throughout the upper middle lobe decrease the paraspinous muscles right equal to left without asymmetry without atrophy or hypertrophy. Patient shows good rotation motion cervical spine both laterally greater than 45 degrees some moderate tenderness only diffusely bilaterally and also with extension and forward flexion performed fully without significant increase in pain. There is slightly increased thoracic kyphosis, some minor flattening of the lumbar lordotic curvature. Lumbar paraspinous muscles show symmetrical on inspection, on palpation shows some moderate tenderness diffusely throughout the upper, middle and lower distribution of the paraspinous muscles bilaterally and also into the lower thoracic paraspinous musculature, firm and tender, but without specific trigger points, without radiation of pain. The patient has good rotational motion of the lumbar spine, both laterally as well as extension and flexion without significant difficulty. No tenderness over the spinous processes, sacrum or sacroiliac regions. EXTREMITIES: Lower extremities show deep tendon reflexes 2 in the patellar and tendo calcaneus tendons. Motor exam is 4 on a scale of 5 with right dorsiflexion, extension, quadriceps and hamstring flexion and 4/5 on the left. Peripheral pulses are 1 posterior tibial. No peripheral edema is noted bilaterally. Lower extremities are warm and dry to touch, equal in color and appearance. Upper extremity show deep tendon reflexes 2+ in the bicep tricep tendons, motor exam is 4 to scale 5 with right senior medical director strength bicep tricep flexion and 5 out of 5 on the left. Patient has good shoulder shrug intact without loss of strength on resistance as is abduction of the shoulders 90 degrees without loss of strength with resistance bilaterally. SKIN: Shows warm and dry, good turgor. No edema. No sores, rashes or bruising throughout. IMPRESSION: Impression: 70-year-old female with 10-month history pain base the neck and upper extremities and radicular fashion worse on the right than the left following a C6-7 dermatomal distribution. MRI scan cervical spine as noted Retention COPD Cigarette smoking Plan: Options were discussed with the patient including conservative medical management continued physical therapies and interventional techniques. As patient has done physical therapies is doing the exercises and has had poor results with both prescription and ltej-xdr-imbhufa anti-inflammatories patient would like to pursue interventional techniques. We discussed a cervical epidural steroid injection using description as well as anatomical models to describe the procedure. Patient will wait for preauthorization with her i nsurance provider once authorized we will have her return for a translaminar at C6-7 level cervical epidural steroid injection with fluoroscopic guidance. In the meantime patient will continue with stretching strength exercises as currently as well as oral analgesics. NANCY WARD MD May 31, 2021 15:49
== END | disposition home or self-care (01) ==
LOC: PNCL 13:11
PROVIDERS: ATTEND Anesthesiology
DX: M54.2 Cervicalgia (principal); M54.5 Low back pain; M79.602 Pain in left arm; M79.601 Pain in right arm; M79.605 Pain in left leg; M79.604 Pain in right leg; M19.90 Unspecified osteoarthritis, unspecified site; I10 Essential (primary) hypertension; E11.9 Type 2 diabetes mellitus without complications; E78.00 Pure hypercholesterolemia, unspecified; F41.9 Anxiety disorder, unspecified; F32.9 Major depressive disorder, single episode, unspecified; F17.210 Nicotine dependence, cigarettes, uncomplicated; Z90.710 Acquired absence of both cervix and uterus; Z79.899 Other long term (current) drug therapy; Z98.890 Other specified postprocedural states; Z80.0 Family history of malignant neoplasm of digestive organs; Z88.5 Allergy status to narcotic agent
CPT/HCPCS: G0463

== ENCOUNTER → 2021-06-15 | Outpatient (CLI) | payer MEDICARE ==
[~2021-06-15] MED LIST changes: +IOHEXOL 180 MG/ML 10 ML VIAL. ONE; +methylPREDNISolone ACETATE 80 MG/ML VIAL. ONE
--- NOTE | 2021-06-15 09:04 | PDOC ---
Progress Note - Pain Clinic Date of Service: DOS: DATE: 06/15/21 TIME: 09:00 Diagnosis: Dx: Cervical radiculopathy with cervical degenerative disease and cervical spinal stenosis Lumbar radiculopathy with lumbar degenerative disc disease History or Present Illness: HPI: 70-year-old female returns for follow-up status post evaluation and awaiting insurance preauthorization patient returns today reporting significant pain in the neck and base of the shoulders now also on the left side more than the right side patient reports saturation was always the right side that was painful in the shoulder and arm but now is rating the left arm just is significantly patient reports this is occurred over the past week or so worse with activity worse with reaching overhead repetitive motions lifting weights with the upper extremities or reaching over her head with her arms. Patient rates pain is a 10 on scale 10 is worst 8-10 on average for its least and is an 8 today patient reports its aching and dull shooting sharp radiating again into the left upper extremity now more so even than the right. Patient reports no new injuries or accidents. Physical Exam: VS: Blood pressure is 140/80 pulse 63 respirations 18 temperature 90.1 F height 5 feet 5 inches weight is 174 pounds PE: PHYSICAL EXAMINATION: GENERAL: The patient is awake, alert, oriented, appropriate, very pleasant in demeanor HEENT: Shows normocephalic, atraumatic. Extraocular movements are intact and symmetrical. Oral cavity: Mucous membranes moist and pink. NECK: Shows anterior throat supple without palpable lymphadenopathy noted. Swallow reflex symmetrical. CHEST: Shows normal on inspection. Breath sounds are clear bilaterally, distant but no rales or rhonchi. HEART: Shows S1, S2 clear. No murmurs auscultated. ABDOMEN: Soft, nontender, nondistended, obese. No palpable organomegaly is noted. BACK: Shows spine grossly in the midline. Normal-appearing cervical lordotic curvature. Cervical paraspinous muscles show symmetrical inspection, palpation some moderate tenderness diffusely bilaterally with out specific trigger points or atrophy hypertrophy. Patient shows good rotation motion cervical spine both laterally as well as extension and forward flexion. There is slightly increased thoracic kyphosis, some minor flattening of the lumbar lordotic curvature. EXTREMITIES: Upper extremities show deep tendon reflexes 2+ in the biceps and triceps tendons. Motor exam is 4 on a scale of 5 with right insulation technician, biceps and triceps flexion and 5/5 on the left. Peripheral pulses are 2+ radial. No peripheral edema is noted bilaterally. Upper extremities are warm and dry to touch, equal in color and appearance. SKIN: Shows warm and dry, good turgor. No edema. No sores, rashes or bruising throughout. Procedure: Procedure: Options discussed with patient. Patient chart was reviewed as her current medication regimen updated current review of systems updated today as well. We will proceed with a cervical epidural steroid injection today with fluoroscopic guidance. Risks were discussed including but not limited to: Bleeding, infecti on, possibility of epidural hematoma and subsequent neurological compromise, dural puncture, headaches, spinal cord and/or nerve damage, side effects of steroid medication, and poor results regarding pain control. Patient understands and wished to proceed. Patient will return to the clinic in approximate 2 weeks for follow-up, was counseled as return appointment, activity, and side effects to be aware of. Medication Injected: Med Injected: Procedure cervical epidural steroid injection at the C6-7 level, using local anesthetic under sterile prep and drape using C-arm fluoroscopic guidance under local anesthesia medications injected ;120 mg Depo-Medrol +5 mL normal saline and 2 mL contrast; condition at discharge is stable patient tolerated procedure well. and had no complications Condition at Discharge: Condition at Discharge: Condition at discharge is stable, patient tolerated the procedure well and had no complications. NANCY WARD MD Jun 15, 2021 09:04
--- NOTE | 2021-06-15 09:04 | PDOC4 ---
Procedure Note: ICD 10 Code: ICD 10 Code: M54.12 M 48.02 M50.30 Procedure Note: Patient was consented for cervical epidural steroid injection with fluoroscopic guidance. Risks were discussed including but not limited to: Bleeding, infection, possibility of epidural hematoma and subsequent neurological compromise, dural puncture, headaches, spinal cord and/or nerve damage, side effects of steroid medication, and poor results regarding pain control. Patient understands and wished to proceed. Procedure cervical epidural steroid injection at the C6-7 level, using local anesthetic under sterile prep and drape using C-arm fluoroscopic guidance under local anesthesia medications injected ;120 mg Depo-Medrol +5 mL normal saline and 2 mL contrast; condition at discharge is stable patient tolerated procedure well. and had no complications NANCY WARD MD Jun 15, 2021 09:04
== END | disposition home or self-care (01) ==
LOC: PNCL 08:13
PROVIDERS: ATTEND Anesthesiology
DX: M50.10 Cervical disc disorder with radiculopathy, unspecified cervical region (principal); M48.02 Spinal stenosis, cervical region; M51.16 Intervertebral disc disorders with radiculopathy, lumbar region; I10 Essential (primary) hypertension; E78.00 Pure hypercholesterolemia, unspecified; M19.90 Unspecified osteoarthritis, unspecified site; F41.9 Anxiety disorder, unspecified; F32.9 Major depressive disorder, single episode, unspecified; F17.210 Nicotine dependence, cigarettes, uncomplicated; Z90.710 Acquired absence of both cervix and uterus; Z98.890 Other specified postprocedural states; Z79.899 Other long term (current) drug therapy; Z88.5 Allergy status to narcotic agent
CPT/HCPCS: 62321; J1040; Q9965

== ENCOUNTER → 2021-06-29 | Outpatient (CLI) | payer MEDICARE ==
[~2021-06-29] MED LIST changes: -IOHEXOL 180 MG/ML 10 ML VIAL. ONE; -methylPREDNISolone ACETATE 80 MG/ML VIAL. ONE
--- NOTE | 2021-06-29 08:34 | PDOC ---
Progress Note - Pain Clinic Date of Service: DOS: DATE: 06/29/21 TIME: 08:28 Diagnosis: Dx: Cervical radiculopathy with cervical degenerative disease and cervical spinal stenosis History or Present Illness: HPI: 70-year-old female returns for follow-up status post cervical epidural steroid injection x1. Patient reports about 90% improvement for the first week and now about 63% improvement overall the pain in her neck and right upper extremity. Patient reports of increasing activity greater ease and comfort doing work act ivities travel with greater ease sleeping much better is very pleased with her progress of the pain is beginning to return in the neck and right upper extremity described as aching and dull in the neck tight and shooting can be constant in the right arm as well patient reports her pain is a 6 on scale 10 is worse in the past week 5 on average 3 at its least and is a 3 today. Patient reports better ability to lift items and repetitive motions also abduction of the right arm is much more comfortable and greater range as well. Patient reports her pain is aching and dull but is much more manageable however it is returning and radiating in the right arm and to the anterior biceps forearm and into the hand with some numbness and tingling in the thumb and first finger. Patient reports no motor loss no bowel or bladder incontinence. Patient continues with stretching and strength exercises daily which has become more easily performed as well and oral analgesics Tylenol and meloxicam. Physical Exam: VS: Blood pressure is 141/64 pulse 66 respirations are 18 temperature is 90.4 F height is 5 feet 5 inches weight is 172 pounds. PE: PHYSICAL EXAMINATION: GENERAL: The patient is awake, alert, oriented, appropriate, very pleasant in demeanor HEENT: Shows normocephalic, atraumatic. Extraocular movements are intact and symmetrical. Oral cavity: Mucous membranes moist and pink. Dentition is intact. NECK: Shows anterior throat supple without palpable lymphadenopathy noted. Swallow reflex symmetrical. CHEST: Shows normal on inspection. Breath sounds are clear bilaterally, distant but no rales or rhonchi. HEART: Shows S1, S2 clear. No murmurs auscultated. ABDOMEN: Soft, nontender, nondistended. No palpable organomegaly is noted. BACK: Shows spine grossly in the midline. Normal-appearing cervical lordotic curvature. Cervical paraspinous muscles show symmetrical with inspection, on palpation some moderate tenderness diffusely in the inferior aspect the paraspinous muscular more on the right than the left as well as into the superior medial trapezius but without radiation. Patient has full rotation motion cervical spine both laterally as well as full extension full forward flexion without significant limitation. There is slightly increased thoracic kyphosis, some minor flattening of the lumbar lordotic curvature. EXTREMITIES: Upper extremities show deep tendon reflexes 2+ in the biceps and triceps tendons. Motor exam is 4 on a scale of 5 with right stakes player, biceps and tricep flexion and 5/5 on the left. Peripheral pulses are 2+ radial. No peripheral edema is noted bilaterally. Upper extremities are warm and dry to touch, equal in color and appearance. SKIN: Shows warm and dry, good turgor. No edema. No sores, rashes or bruising throughout. Procedure: Procedure: Options were discussed with the patient. Patient's chart was reviewed as her current medication regimen updated current review of systems updated today as well. We will preauthorize patient for a second cervical epidural steroid injection she did very well with the first was still has clinical radiculopathy in the right and C6-7 dermatomal distribution. Patient again with near 90% improvement initially now about 63% improvement by her estimation. Once approved we will plan on translaminar approach C6-7 level cervical epidural steroid injection with fluoroscopic guidance. In the meantime, patient will continue with stretching strengthening exercises as well as oral analgesics Tylenol and meloxicam. Medication Injected: Med Injected: None Condition at Discharge: Condition at Discharge: Condition at discharge is stable. NANCY WARD MD Jun 29, 2021 08:34
== END | disposition home or self-care (01) ==
LOC: PNCL 07:57
PROVIDERS: ATTEND Anesthesiology
DX: M50.10 Cervical disc disorder with radiculopathy, unspecified cervical region (principal); M48.061 Spinal stenosis, lumbar region without neurogenic claudication; I10 Essential (primary) hypertension; E78.00 Pure hypercholesterolemia, unspecified; K21.9 Gastro-esophageal reflux disease without esophagitis; M19.90 Unspecified osteoarthritis, unspecified site; F41.9 Anxiety disorder, unspecified; F32.9 Major depressive disorder, single episode, unspecified; F17.210 Nicotine dependence, cigarettes, uncomplicated; Z90.710 Acquired absence of both cervix and uterus; Z98.890 Other specified postprocedural states; Z79.899 Other long term (current) drug therapy; Z88.5 Allergy status to narcotic agent; Z80.0 Family history of malignant neoplasm of digestive organs; Z80.3 Family history of malignant neoplasm of breast
CPT/HCPCS: 99212; G0463

== ENCOUNTER → 2021-07-08 | Outpatient (CLI) | payer MEDICARE ==
[~2021-07-08] MED LIST changes: +IOHEXOL 180 MG/ML 10 ML VIAL. ONE; +methylPREDNISolone ACETATE 80 MG/ML VIAL. ONE
--- NOTE | 2021-07-08 09:18 | PDOC ---
Progress Note - Pain Clinic Date of Service: DOS: DATE: 07/08/21 TIME: 09:15 Diagnosis: Dx: Cervical radiculopathy with cervical degenerative disease and cervical spinal stenosis Lumbar radiculopathy with lumbar degenerative disease History or Present Illness: HPI: 70-year-old female returns for follow-up status post cervical epidural steroid action x1. Patient reports about 65% improvement currently and still significant reduction in pain in the base of the neck and the right upper extremity patient reports new findings of tingling and burning in the left side which is new is always in the low right side patient reports some left-sided pain now as well mostly with repetitive motion and feels that she may be overusing her left arm because her right arm has been painful patient reports otherwise doing fairly well no new bowel or bladder incontinence. Patient reports her pain a 5 on a scale of 10 is worse over the past week for an average for its least is a 4 today patient scribes as aching dull and tight in the arm and radiating in the right upper extremity again some rating pain now on the left side but infrequently. Patient reports it has been waking her from sleep about once every 6 hours no new motor or sensory deficits. Physical Exam: VS: Blood pressure is 154/76 pulse 58 respirations 18 temperature 98.2 F weight is 173 pounds PE: PHYSICAL EXAMINATION: GENERAL: The patient is awake, alert, oriented, appropriate, very pleasant in demeanor HEENT: Shows normocephalic, atraumatic. Extraocular movements are intact and symmetrical. Oral cavity: Mucous membranes moist and pink. NECK: Shows anterior throat supple without palpable lymphadenopathy noted. Swallow reflex symmetrical. CHEST: Shows normal on inspection. Breath sounds are clear bilaterally, no rales rhonchi wheezes auscultated. HEART: Shows S1, S2 clear. No murmurs auscultated. ABDOMEN: Soft, nontender, nondistended, obese. No palpable organomegaly is noted. BACK: Shows spine grossly in the midline. Normal-appearing cervical lordotic curvature. Cervical paraspinous muscles show symmetrical inspection, palpation some moderate tenderness diffusely in the inferior aspect the cervical paraspinous muscle slightly more on the right than left also the superior medial trapezius on the right but without trigger points or atrophy hypertrophy. Patient shows full rotation motion of the cervical spine both laterally as well as full extension full forward flexion without significant difficulty. There is slightly increased thoracic kyphosis, some minor flattening of the lumbar lordotic curvature. EXTREMITIES: Upper extremities show deep tendon reflexes 2+ in the biceps and triceps tendons. Motor exam is 4 on a scale of 5 with right respiratory therapy director, biceps and triceps flexion and 5/5 on the left. Peripheral pulses are 2+ radial. No peripheral edema is noted bilaterally. Upper extremities are warm and dry to touch, equal in color and appearance. SKIN: Shows warm and dry, good turgor. No edema. No sores, rashes or bruising throughout. Procedure: Procedure: Options discussed with patient. Patient chart reviews her current medication regimen updated current view of systems updated today as well. We will proceed with a cervical epidural steroid injection today with fluoroscopic guidance. Risks were discussed including but not limited to: Bleeding, infection, possibility of epidural hematoma and subsequent neurological compromise, dural puncture, headaches, spinal cord and/or nerve damage, side effects of steroid medication, and poor results regarding pain control. Patient understands and wished to proceed. Patient will return to clinic in approximate 2 weeks for follow-up, was counseled as return appointment, activity level, and side effect to be aware of. Medication Injected: Med Injected: Procedure cervical epidural steroid injection at the C6-7 level, using local anesthetic under sterile prep and drape using C-arm fluoroscopic guidance under local anesthesia medications injected ;120 mg Depo-Medrol +5 mL normal saline and 2 mL contrast; condition at discharge is stable patient tolerated procedure well. and had no complications Condition at Discharge: Condition at Discharge: Condition at discharge stable, patient tolerated the procedure well and had no complications. NANCY AWRD MD Jul 08, 2021 09:18
--- NOTE | 2021-07-08 09:19 | PDOC4 ---
Procedure Note: ICD 10 Code: ICD 10 Code: M54.12 M4 8.02 M50.30 Procedure Note: Patient was consented for cervical epidural steroid injection with fluoroscopic guidance. Risks were discussed including but not limited to: Bleeding, infection, possibility of epidural hematoma and subsequent neurological compromise, dural puncture, headaches, spinal cord and/or nerve damage, side effects of steroid medication, and poor results regarding pain control. Patient understands and wished to proceed. Procedure cervical epidural steroid injection at the C6-7 level, using local anesthetic under sterile prep and drape using C-arm fluoroscopic guidance under local anesthesia medications injected ;120 mg Depo-Medrol +5 mL normal saline and 2 mL contrast; condition at discharge is stable patient tolerated procedure well. and had no complications NANCY WARD MD Jul 08, 2021 09:19
== END | disposition home or self-care (01) ==
LOC: PNCL 08:27
PROVIDERS: ATTEND Anesthesiology
DX: M50.10 Cervical disc disorder with radiculopathy, unspecified cervical region (principal); M48.02 Spinal stenosis, cervical region; M51.16 Intervertebral disc disorders with radiculopathy, lumbar region; I10 Essential (primary) hypertension; E78.00 Pure hypercholesterolemia, unspecified; K21.9 Gastro-esophageal reflux disease without esophagitis; M19.90 Unspecified osteoarthritis, unspecified site; F41.9 Anxiety disorder, unspecified; F32.9 Major depressive disorder, single episode, unspecified; F17.210 Nicotine dependence, cigarettes, uncomplicated; Z90.710 Acquired absence of both cervix and uterus; Z98.890 Other specified postprocedural states; Z79.899 Other long term (current) drug therapy; Z88.5 Allergy status to narcotic agent
CPT/HCPCS: 62321; J1040; Q9965

== ENCOUNTER → 2021-08-24 | Outpatient (CLI) | payer MEDICARE ==
[~2021-08-24] MED LIST changes: +ATOR40TA59 PO; -IOHEXOL 180 MG/ML 10 ML VIAL. ONE; -methylPREDNISolone ACETATE 80 MG/ML VIAL. ONE
--- NOTE | 2021-08-24 08:48 | PDOC ---
Progress Note - Pain Clinic Date of Service: DOS: DATE: 08/24/21 TIME: 08:44 Diagnosis: Dx: Cervical radiculopathy with cervical degenerative disease and cervical spinal stenosis Lumbar radiculopathy with lumbar degenerative disc disease History or Present Illness: HPI: 70-year-old female returns for follow-up status post cervical epidural steroid injection on July 08, 2021 patient reports 95% improvement for about 4 weeks following the injection patient reports she was doing much better increase activity daily activities household activities travel with greater ease and comfort sleeping much better patient reports is beginning to return now however the base the neck and shoulders on the right side especially with some fatigue in the right arm with repetitive motions patient reports initially though she was doing much better with all activities and is very pleased with her progress patient reports her pain returning now right arm rating the right posterior shoulder base the neck and into the forearm biceps and into the anterior forearm into the hand on the right side greater than left but some of the base the neck on the left patient rates as a 9 on scale 10 is worse over the past week 7 on average 5 its least is a 5 today patient has aching and tight in the neck shooti ng in the arm cramping in the neck can be constant severe with repetitive motions raising her hand over her head on the right side. Patient reports is beginning awaken her from sleep again about once every 6 hours or so patient reports no deficits but significant fatigability now in the right upper extremity. Physical Exam: VS: Blood pressure is 152/85 pulse 75 respirations 18 temperature is 90.1 F height 5 feet 5 inches weight is 177 pounds PE: PHYSICAL EXAMINATION: GENERAL: The patient is awake, alert, oriented, appropriate, very pleasant in demeanor HEENT: Shows normocephalic, atraumatic. Extraocular movements are intact and symmetrical. Oral cavity: Mucous membranes moist and pink. NECK: Shows anterior throat supple without palpable lymphadenopathy noted. Swallow reflex symmetrical. CHEST: Shows normal on inspection. Breath sounds are clear bilaterally, no rales or. HEART: Shows S1, S2 clear. No murmurs auscultated. ABDOMEN: Soft, nontender, nondistended, obese. No palpable organomegaly is noted. BACK: Shows spine grossly in the midline. Normal-appearing cervical lordotic curvature. Cervical paraspinous muscles show symmetrical inspection, palpation some moderate tenderness diffusely in the base the neck and shoulders good rotation of motion however both laterally as well as extension flexion without significant limitation. There is slightly increased thoracic kyphosis, some minor flattening of the lumbar lordotic curvature. EXTREMITIES: Upper extremities show deep tendon reflexes 2+ in the biceps and triceps tendons. Motor exam is 4 on a scale of 5 with right religious leader, biceps and triceps flexion and 5/5 on the left. Peripheral pulses are 2+ radial. No peripheral edema is noted bilaterally. Upper extremities are warm and dry to touch, equal in color and appearance. SKIN: Shows warm and dry, good turgor. No edema. No sores, rashes or bruising throughout. Procedure: Procedure: Options discussed with the patient. Patient chart was reviewed as her current medication regimen updated current review of systems updated today as well. We will preauthorize patient for a additional cervical epidural steroid injection she did very well after the last injection with about 95% improvement for 4 weeks pain returning now in the neck and especially the right upper extremity in a radicular fashion following a C6-7 dermatomal distribution. Patient will be given Medrol Dosepak in the meantime with instructions side effects aware of discussed. Patient continue with stretching strength exercise as well as heat application to the neck and shoulder on the right as well. Once approved, patient will return for translaminar approach C6-7 level cervical epidural steroid injection with fluoroscopy. Medication Injected: Med Injected: None Condition at Discharge: Condition at Discharge: Condition at discharge is stable. NANCY WARD MD Aug 24, 2021 08:48
== END | disposition home or self-care (01) ==
LOC: PNCL 08:02
PROVIDERS: ATTEND Anesthesiology
DX: M50.10 Cervical disc disorder with radiculopathy, unspecified cervical region (principal); M48.02 Spinal stenosis, cervical region; M51.16 Intervertebral disc disorders with radiculopathy, lumbar region; I10 Essential (primary) hypertension; E78.00 Pure hypercholesterolemia, unspecified; F41.9 Anxiety disorder, unspecified; F32.9 Major depressive disorder, single episode, unspecified; M19.90 Unspecified osteoarthritis, unspecified site; F17.210 Nicotine dependence, cigarettes, uncomplicated; Z90.710 Acquired absence of both cervix and uterus; Z98.890 Other specified postprocedural states; Z79.899 Other long term (current) drug therapy; Z88.5 Allergy status to narcotic agent
CPT/HCPCS: 99212; G0463

== ENCOUNTER → 2021-09-07 | Outpatient (CLI) | payer MEDICARE ==
[~2021-09-07] MED LIST changes: +IOHEXOL 180 MG/ML 10 ML VIAL. ONE; +methylPREDNISolone ACETATE 40 MG/ML VIAL. ONE; +methylPREDNISolone ACETATE 80 MG/ML VIAL. ONE
--- NOTE | 2021-09-07 09:49 | PDOC ---
Progress Note - Pain Clinic Date of Service: DOS: DATE: 09/07/21 TIME: 09:45 Diagnosis: Dx: Cervical radiculopathy with cervical degenerative disease and cervical spinal stenosis Lumbar radiculopathy with lumbar degenerative disc disease History or Present Illness: HPI: 70-year-old female returns in follow-up status post cervical epidural steroid injection most recently July 08, 2021 patient did very well about 90% improvement pain returning now in the neck and right upper extremity in a C6-7 radicular pattern patient reports still doing fairly well patient reports the pain is increasing in the base the neck and right shoulder also some pain in the mid upper back which is new around the scapular region on the right side patient reports her pain a 9 on scale 10 is worse over the past week 8 on average 7 its least is a 7 today patient report is worse with repetitive motions reaching over her head with her right arm as well as with weight lifting and reaching forward and sometimes with driving steering with her right hand patient reports pain is aching and dull in the neck tight and sharp constant shooting in the right upper extremity as well as the shoulder. Patient reports no new motor or sensory deficits no loss of bowel or bladder continence. Physical Exam: VS: Blood pressure is 170/93 pulse 62 respirations 18 temperature 90.1 F height 5 feet 5 inches weight is 176 pounds. PE: PHYSICAL EXAMINATION: GENERAL: The patient is awake, alert, oriented, appropriate, very pleasant in demeanor HEENT: Shows normocephalic, atraumatic. Extraocular movements are intact and symmetrical. Oral cavity: Mucous membranes moist and pink. Dentition is intact. NECK: Shows anterior throat supple without palpable lymphadenopathy noted. Swallow reflex symmetrical. CHEST: Shows normal on inspection. Breath sounds are clear bilaterally. HEART: Shows S1, S2 clear. No murmurs auscultated. ABDOMEN: Soft, nontender, nondistended. No palpable organomegaly is noted. BACK: Shows spine grossly in the midline. Normal-appearing cervical lordotic curvature. Cervical paraspinous muscles show symmetrical with inspection, on palpation some moderate tenderness diffusely in the middle and right lower distribution of the paraspinous muscles on the right into the superior medial trapezius but without radiation. Patient shows good rotation motion cervical spine both laterally as well as extension and flexion without significant increase in pain. There is slightly increased thoracic kyphosis, some minor flattening of the lumbar lordotic curvature. EXTREMITIES: Upper extremities show deep tendon reflexes 2+ in the biceps and t ricep tendons. Motor exam is 4 on a scale of 5 with right international guest coordinator, biceps and triceps flexion and 5/5 on the left. Peripheral pulses are 2+ radial. No peripheral edema is noted bilaterally. Upper extremities are warm and dry to touch, equal in color and appearance. SKIN: Shows warm and dry, good turgor. No edema. No sores, rashes or bruising throughout. Procedure: Procedure: Options discussed with patient. Patient chart reviews her current medication regimen updated current review of systems updated today as well. We will proceed with a cervical epidural steroid injection stable fluoroscopic guidance. Risks were discussed including but not limited to: Bleeding, infection, possibility of epidural hematoma and subsequent neurological compromise, dural puncture, headaches, spinal cord and/or nerve damage, side effects of steroid medication, and poor results regarding pain control. Patient understands and wished to proceed. Patient will return to the clinic in approximate 2 weeks for follow-up, was counseled as return appointment, activity level, and side effect to be aware of. Medication Injected: Med Injected: Procedure cervical epidural steroid injection at the C6-7 level, using local a nesthetic under sterile prep and drape using C-arm fluoroscopic guidance under local anesthesia medications injected ;120 mg Depo-Medrol +5 mL normal saline and 2 mL contrast; condition at discharge is stable patient tolerated procedure well. and had no complications Condition at Discharge: Condition at Discharge: Condition at discharge is stable, patient tolerated procedure well and had no complications. NANCY WARD MD Sep 07, 2021 09:49
--- NOTE | 2021-09-07 09:49 | PDOC4 ---
Procedure Note: ICD 10 Code: ICD 10 Code: M54.12 M 48.02 M50.30 Procedure Note: Patient was consented for cervical epidural steroid injection with fluoroscopic guidance. Risks were discussed including but not limited to: Bleeding, infection, possibility of epidural hematoma and subsequent neurological compromise, dural puncture, headaches, spinal cord and/or nerve damage, side effects of steroid medication, and poor results regarding pain control. Patient understands and wished to proceed. Procedure cervical epidural steroid injection at the C6-7 level, using local anesthetic under sterile prep and drape using C-arm fluoroscopic guidance under local anesthesia medications injected ;120 mg Depo-Medrol +5 mL normal saline and 2 mL contrast; condition at discharge is stable patient tolerated procedure well. and had no complications NANCY WARD MD Sep 07, 2021 09:49
== END | disposition home or self-care (01) ==
LOC: PNCL 09:06
PROVIDERS: ATTEND Anesthesiology
DX: M50.10 Cervical disc disorder with radiculopathy, unspecified cervical region (principal); M51.16 Intervertebral disc disorders with radiculopathy, lumbar region; M48.02 Spinal stenosis, cervical region; I10 Essential (primary) hypertension; E78.00 Pure hypercholesterolemia, unspecified; K21.9 Gastro-esophageal reflux disease without esophagitis; M19.90 Unspecified osteoarthritis, unspecified site; F41.9 Anxiety disorder, unspecified; F32.9 Major depressive disorder, single episode, unspecified; Z90.710 Acquired absence of both cervix and uterus; Z98.890 Other specified postprocedural states; Z79.899 Other long term (current) drug therapy; Z88.5 Allergy status to narcotic agent
CPT/HCPCS: 62321; J1030; J1040; Q9965

== ENCOUNTER → 2021-11-10 | Outpatient (CLI) | payer BC ==
[~2021-11-10] MED LIST changes: -IOHEXOL 180 MG/ML 10 ML VIAL. ONE; -methylPREDNISolone ACETATE 40 MG/ML VIAL. ONE; -methylPREDNISolone ACETATE 80 MG/ML VIAL. ONE
--- NOTE | 2021-11-10 15:34 | CARD ---
MR#: [id number] Date of Study: 11/10/2021 Ordering Physician: CIRILO ALEGRIA, Referring Physician: CIRILO ALEGRIA, Tech: Adrianna Valentine [facility] APPROVED REPORT EXAM: Two-dimensional and M-mode echocardiogram with Doppler and color Doppler. Other Information Quality : AverageHR: 79bpm INDICATION Hypertension/HCVD RISK FACTORS Hyperlipidemia Smoking Asthma 2D DIMENSIONS RVDd3.3 (2.9-3.5cm)Left Atrium(2D)3.1 (1.6-4.0cm) IVSd1.1 (0.7-1.1cm)Aortic Root(2D)3.2 (2.0-3.7cm) LVDd4.6 (3.9-5.9cm)LVOT Diameter2.2 (1.8-2.4cm) PWd1.0 (0.7-1.1cm)LVDs3.8 (2.5-4.0cm) FS (%) 17.9 %SV36.9 ml LVEF(%)37.3 (>50%) Aortic Valve AoV Peak Jamil.131.6cm/sAoV VTI28.5cm AO Peak GR.6.9mmHgLVOT Peak Jamil.99.7cm/s LVOT VTI 23.57cmAO Mean GR.4mmHg VY (VMAX)2.30gf2QQW (VTI)3.10cm2 Mitral Valve MV E Pbxjyxjg86.9cm/sMV DECEL [id number] MV A Terhmkmb42.3cm/sMV E Mean Gr.2mmHg MV EMQ47nrZ/A Ratio0.7 MVA (PHT)3.33cm2 TDI E/Lateral E'12.4E/Medial E'13.4 Pulmonary Valve PV Peak Clwsikhb27.2cm/sPV Peak Grad.3mmHg Tricuspid Valve TR P. Felxtkmi674zn/sRAP DWUTEQRB5moEf TR Peak Gr.34wrKlICWV62rqIr Pulmonary Vein S1 Hhxhccdf76.2cm/sD2 Euytqerb55.1cm/s PVa [id number] LEFT VENTRICLE The left ventricle is normal size. There is mild concentric left ventricular hypertrophy. The left ve ntricular systolic function is normal. The Ejection Fraction is 55-60%. There is normal LV segmental wall motion. Transmitral Doppler flow pattern is Grade I-abnormal relaxation pattern. RIGHT VENTRICLE The right ventricle is normal size. There is normal right ventricular wall thickness. The right ventr icular systolic function is normal. ATRIA The left atrium size is normal. The right atrium size is normal. The interatrial septum is intact wit h no evidence for an atrial septal defect or patent foramen ovale as noted on 2-D or Doppler imaging. AORTIC VALVE The aortic valve is thickened but opens well. Doppler and Color Flow revealed trace aortic regurgitat ion. There is no significant aortic valvular stenosis. Calculated aortic valve area is 3.0 cm2 with m aximum pressure gradient of 9 mmHg and mean pressure gradient of 5 mmHg. MITRAL VALVE The mitral valve is normal in structure and function. There is no evidence of mitral valve prolapse. There is no mitral valve stenosis. Doppler and Color-flow revealed trace mitral regurgitation. TRICUSPID VALVE The tricuspid valve is normal in structure and function. Doppler and Color Flow revealed trace tricus pid regurgitation with an estimated PAP of 30 mmHg. There is no tricuspid valve stenosis. PULMONIC VALVE The pulmonic valve is not well visualized. Doppler and Color Flow revealed trace pulmonic valvular re gurgitation. GREAT VESSELS The aortic root is normal in size. The ascending aorta is normal in size. The IVC is normal in size a nd collapses >50% with inspiration. PERICARDIAL EFFUSION There is no evidence of significant pericardial effusion. Critical Notification Critical Value: No <Conclusion> The left ventricular systolic function is normal. The Ejection Fraction is 55-60%. There is normal LV segmental wall motion. Transmitral Doppler flow pattern is Grade I-abnormal relaxation pattern. Trace mitral regurgitation. Trace tricuspid regurgitation with an estimated PAP of 30 mmHg. There is no evidence of significant pericardial effusion. Signed by : Cirilo Alegria, Electronically Approved : 11/10/2021 15:34:16
== END ==
LOC: ECHO 13:31 → EDBD 13:31
PROVIDERS: ATTEND Internal Medicine Cardiovascular Disease
DX: I35.1 Nonrheumatic aortic (valve) insufficiency (principal); I51.7 Cardiomegaly; I10 Essential (primary) hypertension
CPT/HCPCS: 93306; C8929